=== PATIENT | female | born 1950 | race Caucasian/White ===

== ENCOUNTER 2018-01-01 00:29 | Emergency (ER) | payer MEDICARE, MEDICAID ==
[~2018-01-01] VITALS: Ht 165.1 cm; Wt 50.0 kg
[2018-01-01] MEDS ORDERED: TERA10CA3 PO (00:43)
[2018-01-01] MEDS ORDERED: CORE25TA PO (00:43)
[2018-01-01] MEDS ORDERED: [UNRECOGNIZED DRUG - OTHER] PO (00:43)
[2018-01-01] MEDS ORDERED: RANE1000 PO (00:43)
[2018-01-01] MEDS ORDERED: NITR0.4S SL (00:43)
[2018-01-01] MEDS ORDERED: SEVEL800 PO (00:43)
[2018-01-01] MEDS ORDERED: NIFE60TA58 PO (00:43)
[2018-01-01 00:57] VITALS: RESP 16; O2SAT 98
[2018-01-01 00:58] VITALS: BP 184/77; PULSE 69; RESP 16; TEMP 97.7; O2SAT 99
--- NOTE | 2018-01-01 00:59 | PD ---
HPI Chief Complaint: General Weakness Time Seen by Provider: 00:35 Travel History International Travel<30 days: No Contact w/Intl Traveler<30days: No History of Present Illness HPI The patient is a 67 year old female who presents to the [facility] emergency department with a history of coming home from her hemodialysis yesterday with a sensation of generalized weakness. The patient reports that she was able to do her usual activities and make dinner, however today when she awoke the generalized weakness was worse. She reports that since then she has developed nausea and vomiting. The patient reports that she has had vomiting too many times to count. The patient reports that she has been on hemodialysis for the last 2 years. She receives her usual dialysis on Sunday, Sunday, and Sunday. She reports that she did complete her dialysis yesterday. She reports that she last moved her bowels 5 days ago. She reports that she has a history of chronic constipation and this is not unusual for her. The patient was noted by ambulance services to have a right bundle branch block on EKG done prior to arrival. She denies having any chest pain, chest pressure at this time. She does report having some shortness of breath with exertion. She reports having chills and shaking earlier today. She was complaining of chest pain earlier today. She denies having any known recent fevers, cough, congestion, neck pain, diarrhea, one-sided weakness, slurred speech, difficulty with word finding ability, facial droop, or vision changes. The patient's blood sugar by ambulance services was noted to be 130. PFSH Past Medical History Narrative Medical The patient's past medical history is significant for hypertension, chronic renal failure on hemodialysis, diabetes mellitus. Her primary care doctor is Dr. Perdomo. Diminished Hearing: No Medical other: Yes (KIDNEY FAILURE) Tetanus Vaccination: Unknown Influenza Vaccination: No Past Surgical History Narrative Surgical The patient's past surgical history is significant for right upper external AV fistula placement. Other Surgery: Yes (RT UPPER ARM FISTULA) Social History Alcohol Use: No Tobacco Use: No Substance Use: No Allergies-Medications (Allergen,Severity, Reaction): Coded Allergies: No Known Allergies (Unverified , 01/01/18) Reported Meds & Prescriptions Reported Meds & Active Scripts Active Zofran Odt (Ondansetron Odt) 4 Mg Tab 4 Mg SL Q6HR PRN Famotidine 10 Mg Tab 10 Mg PO BID Reported Nifedipine ER 24 HR (Nifedipine) 60 Mg Tab 60 Mg PO DAILY Terazosin (Terazosin HCl) 10 Mg Cap 10 Mg PO HS Nitrostat SL (Nitroglycerin) 0.4 Mg Subl 0.4 Mg SL DIRECTED PRN 1 tablet under the tongue as needed for chest pain. Repeat every 5 minutes for a total of 3 DOSES or call 911 if NO relief. Renvela (Sevelamer Carbonate) 800 Mg Tab 800 Mg PO TID Ranexa ER 12 HR (Ranolazine) 1,000 Mg Tab 1,000 Mg PO BID Coreg (Carvedilol) 25 Mg Tab 25 Mg PO BID [Collagen] 1,000 Mg PO DAILY Review of Systems Except as stated in HPI: all other systems reviewed are Neg General / Constitutional: Positive: Chills, No: Fever Eyes: No: Visual changes HENT: No: Headaches Cardiovascular: No: Chest Pain or Discomfort Respiratory: No: Shortness of Breath Gastrointestinal: Positive: Nausea, Vomiting, Constipation, No: Diarrhea, Abdominal Pain, Changes in Bowel Habits Genitourinary: No: Dysuria Musculoskeletal: No: Pain Skin: No Rash Neurologic: Positive: Weakness (Generalized weakness), No: Focal Abnormalities , Change in Mentation, Slurred Speech, Sensory Disturbance Psychiatric: No: Depression Endocrine: No: Polydipsia Hematologic/Lymphatic: No: Easy Bruising Physical Exam Narrative General: The patient is a well-developed well-nourished female in no acute distress. Head and Neck exam: Head is normocephalic atraumatic. Eyes: EOMI, pupils are equal round and reactive to light. Nose: Midline septum with pink mucous membranes Mouth: Dentition unremarkable. Moist mucus membranes. Posterior oropharynx is not erythematous. No tonsillar hypertrophy. Uvula midline. Airway patent. Neck: No palpable lymphadenopathy. No nuchal rigidity. No thyromegaly. Cardiovascular: Regular rate and rhythm without murmurs, gallops, or rubs. Lungs: Clear to auscultation bilaterally. No wheezes, rhonchi, or rales. Abdomen: Soft, with reported tenderness on palpation in the midepigastric area, no other tenderness on palpation of the other quadrants of the abdomen no guarding, rebound, or rigidity. Decreased bowel sounds audible. No tenderness on palpation of McBurney's point. Negative Lujan sign. Extremities: No clubbing, cyanosis, or edema. 2+ pulses in all 4 extremities. No calf tenderness on palpation. Back: No costovertebral angle tenderness to palpation. Neurologic Exam: Grossly nonfocal. The patient has generalized weakness. Skin Exam: No rash noted. Intact skin that is warm and dry. Data Data Last Documented VS Vital Signs Date Time Temp Pulse Resp B/P (MAP) Pulse Ox O2 Delivery O2 Flow Rate FiO2 01/01/18 00:58 97.7 69 16 184/77 (112) 99 01/01/18 00:57 Room Air Orders Orders Electrocardiogram (01/01/18 00:50) Complete Blood Count With Diff (01/01/18 00:50) Comprehensive Metabolic Panel (01/01/18 00:50) Creatine Kinase (Cpk) (01/01/18 00:50) Ckmb (Isoenzyme) Profile (01/01/18 00:50) Troponin I (01/01/18 00:50) Prothrombin Time / Inr (Pt) (01/01/18 00:50) Act Partial Throm Time (Ptt) (01/01/18 00:50) Lipase (01/01/18 00:50) Magnesium (Mg) (01/01/18 00:50) Chest, Single Ap (01/01/18 00:50) Ct Brain W/O Iv Contrast(Rout) (01/01/18 00:50) Iv Access Insert/Monitor (01/01/18 00:50) Ecg Monitoring (01/01/18 00:50) Oximetry (01/01/18 00:50) Ct Abd/Pel W/O Iv Contrast (01/01/18 03:06) Sodium Chlorid 0.9% 500 Ml Inj (Ns 500 M (01/01/18 03:15) Ondansetron Inj (Zofran Inj) (01/01/18 03:15) Oral Rehydration (01/01/18 03:07) Famotidine Inj (Pepcid Inj) (01/01/18 03:15) Ed Discharge Order (01/01/18 04:33) Labs Laboratory Tests Test 01/01/18 02:00 White Blood Count 11.4 TH/MM3 Red Blood Count 3.69 MIL/MM3 Hemoglobin 10.7 GM/DL Hematocrit 32.2 % Mean Corpuscular Volume 87.2 FL Mean Corpuscular Hemoglobin 28.9 PG Mean Corpuscular Hemoglobin Concent 33.2 % Red Cell Distribution Width 14.1 % Platelet Count 297 TH/MM3 Mean Platelet Volume 7.3 FL Neutrophils (%) (Auto) 83.9 % Lymphocytes (%) (Auto) 10.7 % Monocytes (%) (Auto) 4.9 % Eosinophils (%) (Auto) 0.2 % Basophils (%) (Auto) 0.3 % Neutrophils # (Auto) 9.5 TH/MM3 Lymphocytes # (Auto) 1.2 TH/MM3 Monocytes # (Auto) 0.6 TH/MM3 Eosinophils # (Auto) 0.0 TH/MM3 Basophils # (Auto) 0.0 TH/MM3 CBC Comment DIFF FINAL Differential Comment Prothrombin Time 10.0 SEC Prothromb Time International Ratio 1.0 RATIO Activated Partial Thromboplast Time 22.4 SEC Blood Urea Nitrogen 30 MG/DL Creatinine 5.00 MG/DL Random Glucose 212 MG/DL Total Protein 7.3 GM/DL Albumin 3.2 GM/DL Calcium Level 8.1 MG/DL Magnesium Level 2.1 MG/DL Alkaline Phosphatase 69 U/L Aspartate Amino Transf (AST/SGOT) 14 U/L Alanine Aminotransferase (ALT/SGPT) 10 U/L Total Bilirubin 0.4 MG/DL Sodium Level 137 MEQ/L Potassium Level 4.7 MEQ/L Chloride Level 104 MEQ/L Carbon Dioxide Level 23.5 MEQ/L Anion Gap 10 MEQ/L Estimat Glomerular Filtration Rate 9 ML/MIN Total Creatine Kinase 40 U/L Troponin I LESS THAN 0.02 NG/ML Lipase 237 U/L [facility] Medical Decision Making Medical Screen Exam Complete: Yes Emergency Medical Condition: Yes Medical Record Reviewed: Yes Interpretation(s) Last Impressions Abdomen/Pelvis CT 01/01/18 0306 Signed Impressions: Service Date/Time: Monday, January 01, 2018 03:26 - CONCLUSION: 1. No acute finding is identified within the abdomen or pelvis. 2. Nonacute findings include nonobstructing right renal stones, moderate atherosclerotic disease, and small hiatal hernia. Brenton Josue MD Head CT 01/01/18 0050 Signed Impressions: Service Date/Time: Monday, January 01, 2018 01:29 - CONCLUSION: 1. No acute intracranial abnormality is identified. 2. Patchy bilateral periventricular and subcortical white matter low-attenuation representing chronic microvascular ischemic change. Brenton Josue MD Chest X-Ray 01/01/18 0050 Signed Impressions: Service Date/Time: Monday, January 01, 2018 00:54 - CONCLUSION: Rotated and underinflated single view of the chest demonstrates no acute abnormality. Brenton Josue MD Differential Diagnosis Electrolyte derangements, versus dehydration, versus gastroparesis, versus bowel obstruction, versus ileus Narrative Course during the course of the patient's emergency department visit, the patient's history, examination, and differential diagnosis were reviewed with the patient. The patient was placed on a telecommunication tower technician with oximetry and frequent blood pressure monitoring. The patient had IV access obtained and blood work sent for analysis. The patient had an EKG done on arrival that shows a sinus rhythm of 71, QRS duration is 154 ms, QTC 490 ms, right bundle branch block is noted. No acute ST segment elevation is noted. IV access was difficult to obtain in this patient, therefore an external jugular IV was placed by me in the right external jugular vein. The line flushed well. Blood was easily obtained from the line. The patient tolerated the procedure well. The patient was initially provided Zofran 4 mg IM by ambulance services prior to arrival. The patient was then given normal saline 500 mL bolus 1, famotidine 10 mg IV, Zofran 4 mg IV. The patient's laboratory studies were reviewed and remarkable for a white count of 11.4, hemoglobin 10.7, platelets 297 with neutrophils 83.9, CMP is remarkable for BUN of 30, creatinine 5, glucose 212, AST 14, cardiac enzymes within normal limits, lipase 237, PT 10, PTT 22.4 Radiology studies were reviewed and remarkable for a chest x-ray that shows a rotated underinflated single view of the chest demonstrates no acute abnormality. CT scan of the brain shows no acute intracranial abnormality. CT scan of the abdomen and pelvis shows no acute findings identified within the abdomen and pelvis. Nonspecific findings include nonobstructive right renal stones, moderate atherosclerotic disease and small hiatal hernia. The patient was started on a p.o. challenge and was able to tolerate this well. Patient will be discharged home with a prescription for Zofran and famotidine. The patient is resting comfortably and feels better, is alert and in no distress. The patient's results and examination findings were discussed with the patient. The repeat examination is unremarkable and benign. The history, exam, diagnostic testing, and current condition do not suggest any significant pathology to warrant further testing, continued ED treatment, admission, or surgical evaluation at this point. The vital signs have been stable. The patient does not have uncontrollable pain, intractable vomiting, or other significant symptoms. The patient's condition is stable and appropriate for discharge. The patient will pursue further outpatient evaluation with a primary care physician or other designated or consulting physician as indicated in the discharge instructions. The patient expressed understanding and was agreeable with this plan. Diagnosis Primary Impression: Vomiting Qualified Codes: R11.2 - Nausea with vomiting, unspecified Referrals: Primary Care Physician 2 days Patient Instructions: Acute Nausea and Vomiting (ED), General Instructions Med/Other Pt SpecificInfo: Prescription(s) given Scripts Ondansetron Odt (Zofran Odt) 4 Mg Tab 4 MG SL Q6HR Y for Nausea/Vomiting, #7 TAB 0 Refills Prov: Mary Posey MD 01/01/18 Famotidine (Famotidine) 10 Mg Tab 10 MG PO BID, #30 TAB 0 Refills Prov: Mary Posey MD 01/01/18 Disposition: 01 DISCHARGE HOME Condition: Stable Mary Posey MD Jan 01, 2018 00:59
--- NOTE | 2018-01-01 01:12 | RADRPT ---
EXAM DATE/TIME: 01/01/2018 00:54 [facility] COMPARISON: No previous studies available for comparison. INDICATIONS : Vomiting. Shortness of breath and general weakness. MEDICAL HISTORY : Kidney failure. SURGICAL HISTORY : Right upper arm fistula. ENCOUNTER: Initial ACUITY: 1 day PAIN SCORE: 3/10 LOCATION: Bilateral chest FINDINGS: Portable AP view of the chest demonstrates a normal-sized cardiac silhouette. Patient is rotated and the lungs are underinflated. The patient's chin obscures the left lung apex. No effusion, consolidati on, or pneumothorax is visualized. The bones and soft tissues demonstrate no acute abnormality. CONCLUSION: Rotated and underinflated single view of the chest demonstrates no acute abnormality. Brenton Josue MD on January 01, 2018 at 1:10 Board Certified Radiologist. This report was verified electronically.
--- NOTE | 2018-01-01 02:19 | RADRPT ---
EXAM DATE/TIME: 01/01/2018 01:29 [facility] COMPARISON: No previous studies available for comparison. INDICATIONS : Generalized weakness; cephalgia RADIATION DOSE: 56.35 CTDIvol (mGy) MEDICAL HISTORY : Renal failure, chronic. SURGICAL HISTORY : None. ENCOUNTER: Initial ACUITY: 1 day PAIN SCALE: 4/10 LOCATION: cranial TECHNIQUE: Multiple contiguous axial images were obtained of the head. Using automated exposure control and adj ustment of the mA and/or kV according to patient size, radiation dose was kept as low as reasonably a chievable to obtain optimal diagnostic quality images. DICOM format image data is available electro nically for review and comparison. FINDINGS: CEREBRUM: The ventricles are normal. There is patchy mild bilateral periventricular and subcortical white matte r signal change. No evidence of midline shift, mass lesion, hemorrhage or acute infarction. No extr a-axial fluid collections are seen. POSTERIOR FOSSA: The cerebellum and brainstem are intact. The 4th ventricle is midline. The cerebellopontine angle i s unremarkable. EXTRACRANIAL: Visualized sinuses are clear. SKULL: The calvaria is intact. No evidence of skull fracture. CONCLUSION: 1. No acute intracranial abnormality is identified. 2. Patchy bilateral periventricular and subcortical white matter low-attenuation representing chronic microvascular ischemic change. Brenton Josue MD on January 01, 2018 at 2:16 Board Certified Radiologist. This report was verified electronically.
[2018-01-01 02:37] LABS: AUTOMATED NEUTROPHIL # 9.5 TH/MM3 (1.8-7.7); BASOPHIL % 0.3 % (0.0-2.0); EOSINOPHIL % 0.2 % (0.0-4.0); HEMATOCRIT 32.2 % (35.0-46.0); HEMOGLOBIN 10.7 GM/DL (11.6-15.3); LYMPH % 10.7 % (9.0-44.0); LYMPHOCYTE # 1.2 TH/MM3 (1.0-4.8); MEAN CELL VOLUME 87.2 FL (80.0-100.0); MEAN CORPUSCULAR HEMOGLOBIN 28.9 PG (27.0-34.0); MEAN CORPUSCULAR HGB CONC 33.2 % (32.0-36.0); MEAN PLATELET VOLUME 7.3 FL (7.0-11.0); MONO % 4.9 % (0.0-8.0); MONOCYTE # 0.6 TH/MM3 (0-0.9); NEUT % 83.9 % (16.0-70.0); PLATELET COUNT 297 TH/MM3 (150-450); RED BLOOD COUNT 3.69 MIL/MM3 (4.00-5.30); RED CELL DISTRIBUTION WIDTH 14.1 % (11.6-17.2); WHITE BLOOD COUNT 11.4 TH/MM3 (4.0-11.0)
[2018-01-01 02:45] LABS: ALBUMIN 3.2 GM/DL (3.4-5.0); ALT (GPT) 10 U/L (10-53); AST (GOT) 14 U/L (15-37); BICARBONATE 23.5 MEQ/L (21.0-32.0); BLOOD UREA NITROGEN 30 MG/DL (7-18); CALCIUM 8.1 MG/DL (8.5-10.1); CHLORIDE 104 MEQ/L (98-107); GLOMERULAR FILTRATION RATE 9 ML/MIN (>89); GLUCOSE,RANDOM 212 MG/DL (74-106); MAGNESIUM 2.1 MG/DL (1.5-2.5); SODIUM (NA) 137 MEQ/L (136-145)
[2018-01-01 02:49] LABS: ALKALINE PHOSPHATASE 69 U/L (45-117); TOTAL BILIRUBIN ADULT 0.4 MG/DL (0.2-1.0); TOTAL PROTEIN 7.3 GM/DL (6.4-8.2); TROPONIN I LESS THAN 0.02 NG/ML (0.02-0.05)
[2018-01-01] MEDS ORDERED: SODIUM CHLORID 0.9% 500 ML INJ 500 ML IV ONE (03:15)
[2018-01-01] MEDS ORDERED: ONDANSETRON HCL 4 MG/2 ML VIAL IV PUSH ONE (03:15)
[2018-01-01] MEDS ORDERED: FAMOTIDINE 20 MG/2 ML VIAL IV PUSH SCH (03:15)
--- NOTE | 2018-01-01 04:08 | RADRPT ---
EXAM DATE/TIME: 01/01/2018 03:26 [facility] COMPARISON: No previous studies available for comparison. INDICATIONS : Abdomen pain with vomiting. ORAL CONTRAST: No oral contrast ingested. RADIATION DOSE: 4.51 CTDIvol (mGy) MEDICAL HISTORY : Hypertension. Diabetes mellitus type 2. Renal failure, acute.Dialysis SURGICAL HISTORY : None. ENCOUNTER: Initial ACUITY: 1 day PAIN SCALE: 6/10 LOCATION: Bilateral abdomen TECHNIQUE: Volumetric scanning of the abdomen and pelvis was performed. Using automated exposure control and ad justment of the mA and/or kV according to patient size, radiation dose was kept as low as reasonably achievable to obtain optimal diagnostic quality images. DICOM format image data is available electro nically for review and comparison. FINDINGS: LOWER LUNGS: The visualized lower lungs are clear. LIVER: Homogeneous density without lesion. There is no dilation of the biliary tree. No calcified gallston es. Gallbladder is distended. SPLEEN: Normal size without lesion. PANCREAS: Within normal limits. KIDNEYS: Normal in size and shape. There is no mass or hydronephrosis. There are [address] ones in the right kidney measuring up to 5 mm. No uterine stone is visualized. ADRENAL GLANDS: Within normal limits. VASCULAR: There is no aortic aneurysm. There is moderate atherosclerotic disease. BOWEL/MESENTERY: The stomach, small bowel, and colon demonstrate no acute abnormality. There is no free intraperitone al air or fluid. There is a small hiatal hernia. ABDOMINAL WALL: Within normal limits. RETROPERITONEUM: There is no lymphadenopathy. BLADDER: No wall thickening or mass. REPRODUCTIVE: There is calcification within the uterus and cervical region. INGUINAL: There is no lymphadenopathy or hernia. MUSCULOSKELETAL: There are degenerative changes of the lumbar spine. CONCLUSION: 1. No acute finding is identified within the abdomen or pelvis. 2. Nonacute findings include nonobstructing right renal stones, moderate atherosclerotic disease, and small hiatal hernia. Brenton Josue MD on January 01, 2018 at 4:03 Board Certified Radiologist. This report was verified electronically.
[2018-01-01] MEDS ORDERED: ZOFR4TAB3 SL (04:18)
[2018-01-01] MEDS ORDERED: FAMO1TAB30 PO (04:18)
--- NOTE | 2018-01-01 14:42 | EKG ---
Date Performed: 01/01/2018 Time Performed: 00:40:31 PTAGE: 67 years EKG: Sinus rhythm WITH FIRST DEGREE AV BLOCK POSSIBLE LEFT ATRIAL ENLARGEMENT MARKED RIGHT AXIS DEVIATION RIGHT BUNDLE BRANCH BLOCK ABNORMAL ECG NO PREVIOUS TRACING DOCTOR: Artis Morris Interpretating Date/Time 01/01/2018 14:33:12
== END 2018-01-01 04:57 | disposition home or self-care (01) ==
LOC: NEPE 00:29
DX: R11.2 Nausea with vomiting, unspecified (principal); N20.0 Calculus of kidney; K44.9 Diaphragmatic hernia without obstruction or gangrene; I45.10 Unspecified right bundle-branch block; I12.0 Hypertensive chronic kidney disease with stage 5 chronic kidney disease or end stage renal disease; N18.6 End stage renal disease; E11.22 Type 2 diabetes mellitus with diabetic chronic kidney disease; K59.09 Other constipation; R06.02 Shortness of breath; Z99.2 Dependence on renal dialysis
CPT/HCPCS: 70450; 71045; 74176; 80053; 82550; 83690; 83735; 84484; 85025; 85610; 85730; 93005; 96374; 99285; J2405; J7040